=== PATIENT | female | born 1995 | race Two or more races ===

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

== ENCOUNTER 2021-03-23 18:05 | Emergency (ER) | payer MEDICAID ==
[~2021-03-23] VITALS: Ht 165.1 cm; Wt 98.0 kg
[2021-03-23 18:32] VITALS: BP 122/75
[2021-03-23] MEDS ORDERED: KETOROLAC TROMETHAMINE INJ 60 MG/2 ML VIAL IM ONE (19:00)
[2021-03-23] MEDS ORDERED: CYCL5TAB PO (19:02)
[2021-03-23] MEDS ORDERED: NAPR500T6 PO (19:02)
[2021-03-23] MEDS ORDERED: KETOROLAC TROMETHAMINE INJ 30 MG/ML VIAL ONE (19:36)
== END 2021-03-23 20:15 | disposition home or self-care (01) ==
LOC: ER 18:05
DX: S70.01XA Contusion of right hip, initial encounter (principal); S30.1XXA Contusion of abdominal wall, initial encounter; M62.830 Muscle spasm of back; Z79.899 Other long term (current) drug therapy; V49.49XA Driver injured in collision with other motor vehicles in traffic accident, initial encounter; Y93.89 Activity, other specified; Y92.488 Other paved roadways as the place of occurrence of the external cause; Y99.8 Other external cause status
CPT/HCPCS: 96372; 99283; J1885